=== PATIENT | male | born 1955 | race Caucasian/White ===

== ENCOUNTER 2021-04-19 14:10 | Inpatient (IN) | payer OTHER ==
[~2021-04-19] VITALS: Ht 177.8 cm; Wt 59.0 kg
[~2021-04-19 14:10] MED LIST: CLONAZEPAM; DEPAKOTE ER250 MG PO; HYDROCODON-ACE1 EAC7 PO; HYDROCODONE-AP1 EAC6 PO; HYDROCODONE-APA1 TA1 PO; LAMICTAL100 MG PO; LEXAPRO20 MG PO; LIPITOR40 MG; MULTIVITAMINS1 EAC7; PREVACID15 MG PO; WHEELCHAIR1 EACH MC; ZIAC 5-6.25 MG1 EACH PO; [UNRECOGNIZED DRUG - OTHER]
[2021-04-19 14:18] VITALS: BP 113/66
[2021-04-19 15:50] LABS: ABSOLUTE BASOPHILS 0.1 thou/uL (0.0-0.2); ABSOLUTE LYMPHOCYTES 1.1 thou/uL (0.8-5.3); ABSOLUTE MONOCYTES 1.2 thou/uL (0.0-1.2); ABSOLUTE NEUTROPHILS 11.3 thou/uL (1.6-8.1); BASOPHILS 0.4 %; EOSINOPHILS 0.1 %; HEMOGLOBIN 14.5 gm/dL (14.0-18.0); LYMPHOCYTES 8.1 %; MCH 31.4 pg (26.0-34.0); MCHC 33.7 g/dL (28.0-37.0); MCV 93.1 fL (80.0-100.0); MONOCYTES 8.8 %; MPV 9.9 fl. (7.2-11.1); NUCLEATED RBCS 0 /100WBC; PLATELET COUNT* 148 thou/uL (150-400); POLYS 82.6 %; RBC 4.62 mil/uL (4.50-6.00); RDW-CV 13.7 % (10.5-14.5); WBC 13.7 thou/uL (4.0-11.0)
[2021-04-19 15:55] LABS: CALCIUM 8.6 mg/dL (8.5-10.1); CREATININE 1.1 mg/dL (0.6-1.3); POTASSIUM 3.6 mmol/L (3.5-5.1)
[2021-04-19 15:59] LABS: ALBUMIN 3.2 g/dL (3.4-5.0); TOTAL BILIRUBIN 0.4 mg/dL (<0.1-1.0); TOTAL PROTEIN 6.7 g/dL (6.4-8.2)
[2021-04-19 18:36] VITALS: BP 158/77
[2021-04-19 18:40] VITALS: BP 154/82
[2021-04-20 07:45] VITALS: BP 135/79
[2021-04-20 20:30] VITALS: BP 149/83
--- NOTE | 2021-04-20 21:09 | OP ---
[address] [address] OPERATIVE REPORT Name: FLORINA ALVARADO Room: [address] IN [facility]#: [id number] Admission: 04/19/21 Attend Phys: Angelica Keane MD Discharge: Date of : 57 Report #: [id number] THIS REPORT FOR: cc: Andrew Lovelace MD, Dean L. MD Orth, Charles DO ~ DOC #: [id number] Jalil Quinn DO DATE OF SURGERY: 04/20/2021 PREOPERATIVE DIAGNOSIS: Comminuted basilar intertrochanteric fracture of the right hip. POSTOPERATIVE DIAGNOSIS: Comminuted basilar intertrochanteric fracture of the right hip. SURGERY PERFORMED: Open reduction and internal fixation with a long [place] gamma nail. SURGEON: Jalil Quinn DO PHARMACY ORDER ENTRY TECHNICIAN: ____. SECOND BAND MACHINE OPERATOR: Dr. Ritchie. THIRD BAND MACHINE OPERATOR: ____. ANESTHESIA: General anesthetic. The patient did receive Ancef 2 grams IV piggyback preoperatively. SPECIMENS: No specimens. COMPLICATIONS: No complications. DRAINS: No drains. ESTIMATED BLOOD LOSS: 50 mL GROSS FINDINGS: Prior to surgery, this patient's x-rays previously correlated with displaced intertrochanteric basilar fracture that was displaced of the right hip region. Intraoperative photograph was taken post-placement of the IM nail demonstrate near anatomic position AP and lateral views. SURGERY IN DETAIL: The patient was taken to the operating room and placed on the table, given the benefit of the general anesthetic well. He at this time when he had a general anesthetic was transferred over to the [facility] [place] [address] OPERATIVE REPORT Name: FLORINA ALVARADO Room: [address] IN [facility].#: [id number] Admission: 04/19/21 Attend Phys: Angelica Keane MD Discharge: Date of : 57 Report #: [id number] a gross fracture reduction done using C-arm for guidance, both AP and lateral views. All C-arm guidance was by the orthopedic surgeon throughout the case. Surgery continued once the fracture was reduced. We did a chlorhexidine prep x2 to this right lower extremity sterile draping. Time-out was called and verified for the right hip. Everyone in the room agreed for the right leg. Surgery continued making a starting incision with a #10 blade scalpel through skin and subcutaneous tissues just proximal and slightly posterior to the greater trochanter. A starting guidewire was initially placed and visualized with the C-arm in both planes, drilling this in appropriate position. The starting reamer was next applied. The long guidewire was placed down the leg and measured off at the guidewire and selected to take an 11 mm x 400 mm, 125-degree angle nail appropriately reamed it distally to 13. At this point in time, the nail was then placed over the guidewire. The guidewire was removed. Next, I prepared for the lag screw insertion, so I made an incision. The guide sleeve was placed, appropriately drilled it and measured and selected a 100 mm lag screw, appropriately reamed it and placed the lag screw in position and then made a set screw and tightened it up. At this point in time, once the proximal end was completely finished, I removed the guide, took x-rays demonstrating good appearance of the proximal end of the nail, so I went distally and in the lateral position with perfect circles, I placed 2 distal screws, appropriately drilled them and placed them without difficulty through the nail. Extra final x-rays were taken there again. I copiously irrigated all surgical sites now. The patient at this point in time had the fascia closed proximally with 0 Vicryl in [id number] fashion, subcutaneous tissues with 2-0 Monocryl and jocelyn. Mepilex dressing was applied, transferred off the OR table, taken to recovery in stable condition. I attest I was present for all critical aspects of the surgery. Needle and instrument counts were correct. Jalil Quinn DO CO/[facility]AM[facility] <ELECTRONICALLY SIGNED> By: Jalil Quinn DO 04/20/21 2109 1038 [id number] Quinn DO /nt
[2021-04-21 02:36] VITALS: BP 148/83
[2021-04-21 03:59] LABS: HEMATOCRIT 29.5 % (42.0-52.0); MCH 31.7 pg (26.0-34.0); MCHC 34.3 g/dL (28.0-37.0); MCV 92.6 fL (80.0-100.0); MPV 9.9 fl. (7.2-11.1); RBC 3.19 mil/uL (4.50-6.00); RDW-CV 13.4 % (10.5-14.5); WBC 11.3 thou/uL (4.0-11.0)
[2021-04-21 04:09] LABS: CALCIUM 7.8 mg/dL (8.5-10.1); CREATININE 0.8 mg/dL (0.6-1.3)
[2021-04-21 04:33] LABS: HEMOGLOBIN 10.1 gm/dL (14.0-18.0)
[2021-04-21 07:45] VITALS: BP 170/94
--- NOTE | 2021-04-21 14:12 | EKG ---
[place] [address] ELECTROCARDIOGRAM REPORT Name: CHRISTIANOFLORINA Room: [address] IN .R.#: [id number] Admission: 04/19/21 Attend Phys: Angelica Keane, Discharge: Date of : 57 Date of Service: 04/19/21 1634 Report #: [id number] THIS REPORT FOR: //name// [facility] ED Test Date: 2021-04-19 Test Time: 16:34:49 Pat Name: FLORINA ALVARADO Department: Room: [facility] Gender: M Studio Data Analyst: KAMI : 1955 Requested By: Kaylee Wilder Order Number: [id number] MD: Colby Peng Measurements Intervals [place] Rate: 65 P: 84 MS: 131 QRS: 73 QRSD: 90 T: 64 QT: 451 QTc: 469 Interpretive Statements Sinus rhythm Nonspecific T abnormalities, anterior leads Baseline wander in lead(s) V1,V2 Compared to ECG 07/13/2016 19:23:33 Sinus bradycardia no longer present T-wave abnormality still present Electronically Signed On 04-21-2021 14:12:10 CDT by Colby Peng [email or web address] <ELECTRONICALLY SIGNED> By: Colby Peng MD, [facility] 04/21/21 1412 1634 1634 Colby Peng MD, [facility] /EPI
[2021-04-21 16:18] VITALS: BP 131/79
[2021-04-21 20:45] VITALS: BP 145/83
[2021-04-22 04:20] LABS: HEMATOCRIT 24.3 % (42.0-52.0); HEMOGLOBIN 8.4 gm/dL (14.0-18.0); MCH 32.5 pg (26.0-34.0); MCHC 34.8 g/dL (28.0-37.0); MCV 93.3 fL (80.0-100.0); MPV 10.5 fl. (7.2-11.1); RBC 2.6 mil/uL (4.50-6.00); RDW-CV 13.4 % (10.5-14.5); WBC 10.8 thou/uL (4.0-11.0)
[2021-04-22 04:51] LABS: CALCIUM 8.1 mg/dL (8.5-10.1); CREATININE 0.8 mg/dL (0.6-1.3); POTASSIUM 3.8 mmol/L (3.5-5.1)
[2021-04-22 07:05] VITALS: BP 106/59
[2021-04-22 16:25] VITALS: BP 67/41
[2021-04-22 17:33] VITALS: BP 102/62
[2021-04-22 20:15] VITALS: BP 84/52
[2021-04-23] VITALS: BP 93/62
[2021-04-23 04:52] LABS: HEMATOCRIT 24.3 % (42.0-52.0); HEMOGLOBIN 8.2 gm/dL (14.0-18.0); MCH 31.7 pg (26.0-34.0); MCHC 33.8 g/dL (28.0-37.0); MCV 93.9 fL (80.0-100.0); MPV 11.6 fl. (7.2-11.1); RBC 2.59 mil/uL (4.50-6.00); RDW-CV 13.9 % (10.5-14.5); WBC 10.8 thou/uL (4.0-11.0)
[2021-04-23 07:05] VITALS: BP 129/67
[2021-04-23] MEDS ORDERED: ASPIRIN325 PO (15:43)
[2021-04-23 16:00] VITALS: BP 130/68
== END 2021-04-23 17:28 | DRG 956 ==
LOC: M.ERS 14:10 → M.ORTHSURG 15:31 → M.TBA-ER 15:31 → M.ORTHSURG 18:43
PROVIDERS: Family Medicine; Internal Medicine; Physician Assistant; ADMIT Internal Medicine; ATTEND Internal Medicine
PROC: 0QS604Z Reposition Right Upper Femur with Internal Fixation Device, Open Approach (ICD-10-PCS; principal; 2021-04-20)
DX: S72.141A Displaced intertrochanteric fracture of right femur, initial encounter for closed fracture (principal); S06.9X0A Unspecified intracranial injury without loss of consciousness, initial encounter; R71.0 Precipitous drop in hematocrit; E44.1 Mild protein-calorie malnutrition; Z68.1 Body mass index [BMI] 19.9 or less, adult; Z20.822 Contact with and (suspected) exposure to COVID-19; K21.9 Gastro-esophageal reflux disease without esophagitis; I10 Essential (primary) hypertension; F32.9 Major depressive disorder, single episode, unspecified; F41.9 Anxiety disorder, unspecified; G40.909 Epilepsy, unspecified, not intractable, without status epilepticus; W18.39XA Other fall on same level, initial encounter; Y93.89 Activity, other specified; Y99.8 Other external cause status; Z90.49 Acquired absence of other specified parts of digestive tract; Z87.828 Personal history of other (healed) physical injury and trauma; Y92.090 Kitchen in other non-institutional residence as the place of occurrence of the external cause; Z86.73 Personal history of transient ischemic attack (TIA), and cerebral infarction without residual deficits; Z71.6 Tobacco abuse counseling; Z79.82 Long term (current) use of aspirin; Z79.899 Other long term (current) drug therapy

== ENCOUNTER 2021-04-23 14:45 | Inpatient (IN) | payer OTHER ==
[~2021-04-23] VITALS: Ht 177.8 cm; Wt 63.6 kg
[2021-04-23] MEDS ORDERED: ASPIRIN325 PO (15:43)
[2021-04-23 19:00] VITALS: BP 114/58
[2021-04-24 04:35] LABS: CALCIUM 7.9 mg/dL (8.5-10.1); CREATININE 0.7 mg/dL (0.6-1.3); POTASSIUM 3.4 mmol/L (3.5-5.1)
[2021-04-24 04:39] LABS: HEMATOCRIT 22.9 % (42.0-52.0); HEMOGLOBIN 7.7 gm/dL (14.0-18.0); MCH 31.5 pg (26.0-34.0); MCHC 33.8 g/dL (28.0-37.0); MCV 93.3 fL (80.0-100.0); MPV 10.6 fl. (7.2-11.1); RBC 2.45 mil/uL (4.50-6.00); RDW-CV 13.4 % (10.5-14.5); WBC 8.6 thou/uL (4.0-11.0)
[2021-04-24 22:00] VITALS: BP 123/91
[2021-04-25 08:00] VITALS: BP 140/69
[2021-04-25 20:24] VITALS: BP 145/71
[2021-04-26 08:00] VITALS: BP 125/63
[2021-04-26 20:36] VITALS: BP 123/66
[2021-04-27 19:00] VITALS: BP 112/46
[2021-04-28 08:20] VITALS: BP 133/71
[2021-04-28 20:10] VITALS: BP 63/33
[2021-04-28 20:15] VITALS: BP 71/42
[2021-04-28 21:45] VITALS: BP 80/50
[2021-04-28 22:40] VITALS: BP 86/52
[2021-04-28 23:15] VITALS: BP 115/63
[2021-04-29 03:15] VITALS: BP 111/60
[2021-04-29 10:28] LABS: HEMATOCRIT 32.5 % (42.0-52.0); HEMOGLOBIN 10.5 gm/dL (14.0-18.0); MCH 31.3 pg (26.0-34.0); MCHC 32.2 g/dL (28.0-37.0); MCV 97.2 fL (80.0-100.0); MPV 9.8 fl. (7.2-11.1); RBC 3.35 mil/uL (4.50-6.00); RDW-CV 15.4 % (10.5-14.5); WBC 10.8 thou/uL (4.0-11.0)
[2021-04-29 10:41] LABS: ALBUMIN 2.4 g/dL (3.4-5.0); CALCIUM 8.4 mg/dL (8.5-10.1); CREATININE 0.8 mg/dL (0.6-1.3); POTASSIUM 3.3 mmol/L (3.5-5.1); TOTAL BILIRUBIN 0.8 mg/dL (<0.1-1.0); TOTAL PROTEIN 6.3 g/dL (6.4-8.2)
[2021-04-29 19:00] VITALS: BP 90/51
[2021-04-30 08:00] VITALS: BP 115/77
[2021-04-30] MEDS ORDERED: FLOMAX0.4 MG PO (18:45)
[2021-04-30 19:45] VITALS: BP 138/79
[2021-05-01 04:48] LABS: HEMATOCRIT 25.1 % (42.0-52.0); MCH 31.7 pg (26.0-34.0); MCHC 33.5 g/dL (28.0-37.0); MCV 94.4 fL (80.0-100.0); MPV 9.3 fl. (7.2-11.1); RBC 2.66 mil/uL (4.50-6.00); RDW-CV 15.4 % (10.5-14.5); WBC 9.2 thou/uL (4.0-11.0)
[2021-05-01 05:02] LABS: HEMOGLOBIN 8.4 gm/dL (14.0-18.0)
[2021-05-01 05:31] LABS: CALCIUM 8.1 mg/dL (8.5-10.1); CREATININE 0.8 mg/dL (0.6-1.3); POTASSIUM 3.6 mmol/L (3.5-5.1)
[2021-05-01 09:35] VITALS: BP 161/82
[2021-05-01 19:00] VITALS: BP 133/70
[2021-05-02 08:00] VITALS: BP 119/54
[2021-05-02 20:23] VITALS: BP 139/70
[2021-05-03 07:30] VITALS: BP 139/68
[2021-05-03 20:31] VITALS: BP 145/79
[2021-05-04 11:15] VITALS: BP 125/77
[2021-05-04 20:13] VITALS: BP 146/77
[2021-05-05 08:00] VITALS: BP 113/62
[2021-05-05 20:00] VITALS: BP 121/62
[2021-05-06 08:15] VITALS: BP 109/62; BP 127/61
[2021-05-06 20:00] VITALS: BP 119/70
[2021-05-07 08:30] VITALS: BP 125/68
--- NOTE | 2021-05-07 12:48 | EEG ---
[address] [address] EEG STUDY REPORT Name: FLORINA ALVARADO Room: [address] IN .R.#: [id number] Admission: 04/23/21 Attend Phys: Contreras Wright MD Discharge: Date of : 57 Report #: [id number] THIS REPORT FOR: cc: Andrew Lovelace MD, Dean L. MD Khosla, Parveen K. MD ~ DOC #: [id number] Leodan Lentz MD DATE OF SERVICE: 04/30/2021 This patient's EEG was done by placing the electrode by standard 10-20 system of electrode placement. Both referential and sequential montages were used for recording. This EEG is pretty asymmetrical. It is poorly formed on both sides, but more so on the left as compared to the right side. 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 Background activity does go about 7 Hz and 30 microvolts, but most of the time it is slower. On the left side, it is pretty poorly formed, and sometimes, some sharp transient is noticed, but it is difficult to distinguish that from breakthrough rhythm secondary to skull defect. The patient goes to sleep that is associated with bilateral slowing. IMPRESSION: This is an abnormal EEG because it is very disorganized and poorly formed. It is disorganized on both sides, more so on the left side as compared to the right side. On the left side, the patient has his skull defect and a breach rhythm is expected and it is difficult to distinguish this from some seizure activity, which may be present. Thank you very much for this referral. MD HAKAN Cuadra/[facility] <ELECTRONICALLY SIGNED> By: Leodan Lentz MD 05/07/21 1248 0657 [id number] Lentz MD /nt
--- NOTE | 2021-05-07 12:48 | CON ---
[address] [address] CONSULTATION Name: FLORINA ALVARADO Room: [address] IN .R.#: [id number] Admission: 04/23/21 Attend Phys: Contreras Wright MD Discharge: Date of : 57 Report #: [id number] THIS REPORT FOR: cc: Andrew Lovelace MD, Dean L. MD Khosla,Leodan Diaz MD ~ DOC #: [id number] Leodan Lentz MD DATE OF CONSULTATION: 05/01/2021 HISTORY OF PRESENT ILLNESS: This is a 66-year-old male patient who was evaluated by me for the possibility of seizure. The patient is unable to provide any reliable history. I called the patient's and she did not case picker the phone, so I left a message for her. I talked to Dr. Newby, the admitting physician, and I had also talked to Dr. Keane, the hospitalist, who is seeing this patient yesterday. The patient apparently had a severe traumatic brain injury. He fell and fractured his hip. He is here for rehabilitation. History is entirely from the record. Neurology consultation is being requested for seizure and we will confine ourself for that. The patient does not provide any history for seizure and I ____ tell from the record how frequent of the patient's seizure is and when did it start. In fact, no significant neurological history I can get in this patient. Record indicated that he did have a traumatic brain injury and one of them also indicated that he had a stroke before that. He has a history of marijuana abuse for a long time and history of depression and anxiety. REVIEW OF SYSTEMS: From the record is gastroesophageal reflux, seizure disorder, traumatic brain injury, hypertension, depression, aphasia, tobacco dependence, fracture of the hip and that 14-point review of system I can get in this patient. PAST MEDICAL HISTORY: Positive for traumatic brain injury. FAMILY HISTORY: Unavailable. SOCIAL HISTORY: He is , but I cannot reach his . PHYSICAL EXAMINATION: Pretty limited because he did not cooperate. It looks he is conscious, but he does not follow commands. He did not have much speech, but he tried to convey thinks by gestures. He did not move his right arm for me and his fracture on the right neck. This is all the examination, I could carry out. He is alert. He does not have any meningeal sign. His cardiac examination is unremarkable. No respiratory difficulty. No carotid bruit. No thyroid mass. Blood pressure is 161/82, respirations 18, pulse is 58. I had talked to the nurses yesterday, they say he was not as good as he was before. His CT scan was [address] [place] [address] CONSULTATION Name: CHRISTIANO,FLORINA E Room: [address] IN [facility]#: [id number] Admission: 04/23/21 Attend Phys: Contreras Wright MD Discharge: Date of : 57 Report #: [id number] reviewed and this demonstrated very extensive chronic changes. Review of the medicine indicates that he is on a combination of Depakote and Lamictal, but I do not know who is managing it. We would like to reach the patient's to get more history. IMPRESSION: History of seizure, but clinically does not appear to be having seizures at the moment. I will try to reach the . Medicines probably has to be readjusted with the problem is that Depakote and Lamictal has interactions and it need to be done cautiously. I am not sure why he is on combination for that, we will try to find from the . Thank you very much for this referral. Leodan Lentz MD PK/[facility] <ELECTRONICALLY SIGNED> By: Leodan Lentz MD 05/07/21 1248 1349 [id number] Lentz MD /nt
[2021-05-07 19:00] VITALS: BP 152/76
[2021-05-08 04:41] LABS: HEMATOCRIT 26.4 % (42.0-52.0); HEMOGLOBIN 8.8 gm/dL (14.0-18.0); MCH 31.3 pg (26.0-34.0); MCHC 33.4 g/dL (28.0-37.0); MCV 93.9 fL (80.0-100.0); MPV 9.3 fl. (7.2-11.1); RBC 2.81 mil/uL (4.50-6.00); RDW-CV 15.3 % (10.5-14.5)
[2021-05-08 04:42] LABS: CALCIUM 8.2 mg/dL (8.5-10.1); CREATININE 0.8 mg/dL (0.6-1.3); POTASSIUM 3.9 mmol/L (3.5-5.1)
[2021-05-08 10:42] VITALS: BP 148/77
[2021-05-08 20:00] VITALS: BP 139/74
[2021-05-09 20:00] VITALS: BP 152/72
[2021-05-10 07:40] VITALS: BP 133/82
[2021-05-10 07:42] VITALS: BP 133/82
[2021-05-10 20:08] VITALS: BP 146/81
[2021-05-11 08:00] VITALS: BP 149/69
[2021-05-11 19:00] VITALS: BP 138/75
[2021-05-12 07:35] VITALS: BP 161/85
[2021-05-12 20:00] VITALS: BP 154/87
[2021-05-13 09:00] VITALS: BP 141/82
[2021-05-13 19:00] VITALS: BP 117/81
[2021-05-14 08:15] VITALS: BP 120/72
[2021-05-14 19:00] VITALS: BP 132/85
[2021-05-15 04:55] LABS: HEMATOCRIT 31.5 % (42.0-52.0); HEMOGLOBIN 10.4 gm/dL (14.0-18.0); MCHC 33.1 g/dL (28.0-37.0); MCV 93.7 fL (80.0-100.0); MPV 9.3 fl. (7.2-11.1); RBC 3.36 mil/uL (4.50-6.00); RDW-CV 15.3 % (10.5-14.5); WBC 6.6 thou/uL (4.0-11.0)
[2021-05-15 05:04] LABS: CALCIUM 8.9 mg/dL (8.5-10.1); CREATININE 0.8 mg/dL (0.6-1.3); POTASSIUM 4.2 mmol/L (3.5-5.1)
[2021-05-15 07:36] VITALS: BP 124/76
[2021-05-15 19:00] VITALS: BP 160/91
[2021-05-16 07:40] VITALS: BP 126/84
[2021-05-16] MEDS ORDERED: NORCO7.5 PO (10:33)
[2021-05-16 13:00] VITALS: BP 126/84
[2021-05-16 20:25] VITALS: BP 138/79
[2021-05-17 09:14] VITALS: BP 126/84
[2021-05-17] MEDS ORDERED: CLONAZEPAM 0.50.5 M1 PO (10:58)
[2021-05-17 12:52] VITALS: BP 126/84
== END 2021-05-17 17:59 | disposition home health service (06) | DRG 536 ==
LOC: M.REH 14:45
PROVIDERS: ADMIT Physical Medicine & Rehabilitation; ATTEND Physical Medicine & Rehabilitation
DX: S72.141A Displaced intertrochanteric fracture of right femur, initial encounter for closed fracture (principal); E44.1 Mild protein-calorie malnutrition; K21.9 Gastro-esophageal reflux disease without esophagitis; G40.909 Epilepsy, unspecified, not intractable, without status epilepticus; F32.9 Major depressive disorder, single episode, unspecified; W18.39XA Other fall on same level, initial encounter; I10 Essential (primary) hypertension; D64.9 Anemia, unspecified; F17.210 Nicotine dependence, cigarettes, uncomplicated; F41.9 Anxiety disorder, unspecified; R53.81 Other malaise; Y93.89 Activity, other specified; Y92.89 Other specified places as the place of occurrence of the external cause; Y99.8 Other external cause status; Z87.820 Personal history of traumatic brain injury; Z95.5 Presence of coronary angioplasty implant and graft; Z68.20 Body mass index [BMI] 20.0-20.9, adult